=== PATIENT | female | born 1995 | race Caucasian/White ===

== ENCOUNTER 2017-07-15 13:10 | Emergency (ER) | payer BC ==
[~2017-07-15] VITALS: Ht 160 cm; Wt 47.4 kg
[2017-07-15 13:13] VITALS: TEMP 36.6; Ht 160 cm; Wt 47.4 kg
[2017-07-15] MEDS ORDERED: ONDANSETRON INJ 2 MG/ML 2 ML VIAL IV STA (13:21)
[2017-07-15] MEDS ORDERED: SODIUM CHLORIDE 0.9% 500ML 500 ML IV STA (13:21)
--- NOTE | 2017-07-15 13:33 | EMERGENCY ROOM VISIT NOTE ---
History Report prepared by Caron: Jessica Ngo Under the Supervision of: Dr. Emeka Celis M.D. First contact with patient: 13:19 Chief Complaint: ABDOMINAL PAIN Stated Complaint: ABDOMINAL CRAMPS,VOMITING,SWEATING,NUMB HANDS Nursing Triage Summary: Pt reports " i have cramps they started like this morning and they are like so bad." pt reports nausea and vomitting. pt reports "i feel really dizzy too." History of Present Illness The patient is a 21 year old white female with a past medical history of dysmenorrhea who presents to the ED with a cc of worsening abdominal pain and cramping beginning this morning. Positive nausea, chills, and vomiting . Negative urinary symptoms, back pain, or recent sexual intercourse. 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 She reports she has vomited 5 times today. Her last normal bowel movement was this morning. Source of History: patient Onset: this morning Position: abdomen Quality: cramping Timing: worsening Associated Symptoms: + chills, + nausea, + vomiting, No back pain, No urinary symptoms Note: Negative recent sexual intercourse. Review of Systems See HPI for pertinent positives and negatives. A total of ten systems were reviewed and were otherwise negative. Past Medical & Surgical Medical Problems: (1) Dysmenorrhea Family History No pertinent family history Social History Smoking Status: Never Smoker Current/Historical Medications No Active Prescriptions or Reported Meds Allergies Coded Allergies: No Known Allergies (Unverified , 07/15/17) Physical Exam Vital Signs Date Time Temp Pulse Resp B/P (MAP) Pulse Ox O2 Delivery O2 Flow Rate FiO2 07/15/17 16:25 82 18 94/57 98 Room Air 07/15/17 14:27 79 16 109/70 100 Room Air 07/15/17 13:13 36.6 60 18 97/53 100 Room Air Physical Exam GENERAL: Awake, alert, well-appearing. Moderate distress. Rigors present. HENT: Normocephalic, atraumatic. EYES: Normal conjunctiva. Sclera non-icteric. NECK: Supple. No nuchal rigidity. FROM. RESPIRATORY: CTAB, no rhonchi, wheezing, crackles CARDIAC: RRR, no MRG ABDOMEN: Soft, NTND, BS+. Mild diffuse abdominal discomfort. No guarding, no rigidity. Negative obturators. Negative psoas. MSK: No CVA TTP, no LE edema NEURO: GCS 15, CN 2-12 intact, moves all 4s on command SKIN: No rash or jaundice noted. Notable red blemishes over the face. Medical Decision & Procedures Laboratory Results 07/15/17 13:45 Red Blood Count 4.66, Mean Corpuscular Volume 88.8, Mean Corpuscular Hemoglobin 30.9, Mean Corpuscular Hemoglobin Concent 34.8, Mean Platelet Volume 11.2, Neutrophils (%) (Auto) 77.7, Lymphocytes (%) (Auto) 16.9, Monocytes (%) (Auto) 4.6, Eosinophils (%) (Auto) 0.3, Basophils (%) (Auto) 0.4, Neutrophils # (Auto) 5.60, Lymphocytes # (Auto) 1.22, Monocytes # (Auto) 0.33, Eosinophils # (Auto) 0.02, Basophils # (Auto) 0.03 07/15/17 13:45 Test 07/15/17 13:45 07/15/17 15:06 White Blood Count 7.21 K/uL (4.8-10.8) Red Blood Count 4.66 M/uL (4.2-5.4) Hemoglobin 14.4 g/dL (12.0-16.0) Hematocrit 41.4 % (37-47) Mean Corpuscular Volume 88.8 fL (80-100) Mean Corpuscular Hemoglobin 30.9 pg (25-34) Mean Corpuscular Hemoglobin Concent 34.8 g/dl (32-36) Platelet Count 211 K/uL (130-400) Mean Platelet Volume 11.2 fL (7.4-10.4) Neutrophils (%) (Auto) 77.7 % Lymphocytes (%) (Auto) 16.9 % Monocytes (%) (Auto) 4.6 % Eosinophils (%) (Auto) 0.3 % Basophils (%) (Auto) 0.4 % Neutrophils # (Auto) 5.60 K/uL (1.4-6.5) Lymphocytes # (Auto) 1.22 K/uL (1.2-3.4) Monocytes # (Auto) 0.33 K/uL (0.11-0.59) Eosinophils # (Auto) 0.02 K/uL (0-0.5) Basophils # (Auto) 0.03 K/uL (0-0.2) RDW Standard Deviation 39.6 fL (36.4-46.3) RDW Coefficient of Variation 12.5 % (11.5-14.5) Immature Granulocyte % (Auto) 0.1 % Immature Granulocyte # (Auto) 0.01 K/uL (0.00-0.02) Anion Gap 8.0 mmol/L (3-11) Est Creatinine Clear Calc Drug Dose 86.1 ml/min Estimated GFR () 126.8 Estimated GFR (Non- 109.4 BUN/Creatinine Ratio 15.7 (10-20) Calcium Level 9.5 mg/dl (8.5-10.1) Phosphorus Level 2.7 mg/dl (2.5-4.9) Magnesium Level 1.9 mg/dl (1.8-2.4) Total Bilirubin 0.5 mg/dl (0.2-1) Direct Bilirubin 0.2 mg/dl (0-0.2) Aspartate Amino Transf (AST/SGOT) 24 U/L (15-37) Alanine Aminotransferase (ALT/SGPT) 20 U/L (12-78) Alkaline Phosphatase 76 U/L (45-117) Total Protein 8.0 gm/dl (6.4-8.2) Albumin 4.5 gm/dl (3.4-5.0) Lipase 84 U/L (73-393) Urine Color YELLOW Urine Appearance CLOUDY (CLEAR) Urine pH 7.5 (4.5-7.5) Urine Specific [place] 1.016 (1.000-1.030) Urine Protein NEG (NEG) Urine Glucose (UA) NEG (NEG) Urine Ketones 1+ (NEG) Urine Occult Blood 3+ (NEG) Urine Nitrite NEG (NEG) Urine Bilirubin NEG (NEG) Urine Urobilinogen NEG (NEG) Urine Leukocyte Esterase NEG (NEG) Urine WBC (Auto) 1-5 /hpf (0-5) Urine RBC (Auto) >30 /hpf (0-4) Urine Hyaline Casts (Auto) 10-30 /lpf (0-5) Urine Epithelial Cells (Auto) >30 /lpf (0-5) Urine Bacteria (Auto) NEG (NEG) Urine Renal Epithelial Cells 0-5 /lpf (0-5) Urine Test NEG (NEG) Laboratory results reviewed by me Medications Administered Medications (Trade) Dose Ordered Sig/Otbi Route Start Time Stop Time Status Last Admin Dose Admin Ondansetron HCl (Zofran Inj) 4 mg NOW STAT IV 07/15/17 13:21 07/15/17 13:25 DC 07/15/17 13:45 4 MG Sodium Chloride 500 ml @ 999 mls/hr Q31M STAT IV 07/15/17 13:21 07/15/17 13:51 DC 07/15/17 13:44 999 MLS/HR Ketorolac Tromethamine (Toradol Inj) 30 mg STK-MED ONCE .ROUTE 07/15/17 13:40 07/15/17 13:41 DC 07/15/17 13:45 30 MG ED Course 1223: The patient was evaluated in room B2. A complete history and physical exam was performed. 1617: I reevaluated the patient. Discussed results and discharge instructions: She verbalized understanding and agreement. The patient is ready for discharge. Medical Decision The patient is a 21 year old white female with a past medical history of dysmenorrhea who presents to the ED with a cc of worsening abdominal pain and cramping beginning this morning. Positive nausea, chills, and vomiting . Negative urinary symptoms, back pain, recent sexual intercourse. Nursing notes reviewed. Ancillary studies and prior records reviewed. Differential diagnosis: Etiologies such as appendicitis, diverticulitis, PUD, biliary pathology, UTI, pancreatitis, obstruction, mesenteric ischemia, aortic pathology, infections, inflammatory bowel disease, renal colic, as well as others were entertained. Patient was seen and evaluated the bedside. Patient had some worsening abdominal pain and cramping with some associated nausea. Patient also did have rigors and chills. Patient did have blood work completed along with urinalysis and urine patency test. Patient's blood work is fairly unremarkable. Patient was given some IV fluids and Zofran along with Toradol. Upon reassessment the patient was feeling improved. Patient's urinalysis is negative for blood or infection. Urine test negative. Patient was informed of these findings. Patient was told to continue take the meloxicam for the next 2 days and could take a Pepcid along with food to help minimize GI upset. Patient was also given some Zofran for home. Patient was given strict follow-up, discharge, and return precautions. All questions were answered. Patient was deemed suitable for outpatient follow-up at this time. Patient agreed with the plan of care and was safely discharged home. Medication Reconcilliation Current Medication List: was personally reviewed by me Blood Pressure Screening Patient's blood pressure: Normal blood pressure Blood pressure disposition: Did not require urgent referral Impression Primary Impression: Abdominal pain Additional Impression: Nausea & vomiting Scribe Attestation The scribe's documentation has been prepared under my direction and personally reviewed by me in its entirety. I confirm that the note above accurately reflects all work, treatment, procedures, and medical decision making performed by me. Departure Information Dispostion Home / Self-Care Prescriptions Ondansetron Hcl (ZOFRAN) 4 Mg Tab 4 MG PO Q8H Y for Nausea, #12 TAB Prov: Emeka Celis M.D. 07/15/17 Famotidine (PEPCID) 20 Mg Tab 20 MG PO BID for 7 Days, #14 TAB Prov: Emeka Celis M.D. 07/15/17 Referrals No Doctor, Assigned (PCP) Patient Instructions Abdominal Pain, ED Nausea Vomiting, [facility] Additional Instructions Please return to the emergency department if you have worsening or recurrent symptoms not amenable to at-home treatment. Please call for a follow-up appointment with her primary care physician. Please take your medications as prescribed. If you have other concerns and/or complaints please feel free to also call your primary care physician's office or return the ED for further evaluation, management, and treatment. You may take your naproxen as needed for pain/fever as prescribed with food unless told by your physician not to take NSAIDs. You may take tylenol 1000 mg every 6 hours as needed for pain/fever unless told by your physician to not take it or have liver problems. You may take naproxen and tylenol separately or at the same time. Take your medications as prescribed. Avoid alcohol and continue to hydrate liberally with clear liquids. Consider a bland diet and advance as tolerated. You have been examined and treated today on an emergency basis only. This is not a substitute for, or an effort to provide, complete comprehensive medical care. It is impossible to recognize and treat all injuries or illnesses in a single emergency department visit. It is therefore important that you follow up closely with [facility], your PCP, and/or your specialist(s). Call as soon as possible for an appointment. Thank you for your time and consideration. I look forward to speaking with you again soon. Please don't hesitate to call us if you have any questions. Problem Qualifiers Primary Impression: Abdominal pain Abdominal location: generalized Qualified Codes: R10.84 - Generalized abdominal pain
[2017-07-15] MEDS ORDERED: KETOROLAC TROMETHAMINE 30 MG/ML VIAL ONE (13:40)
[2017-07-15 13:54] LABS: BASO % 0.4 %; BASO ABS # 0.03 K/uL (0-0.2); EOS % 0.3 %; EOS ABS # 0.02 K/uL (0-0.5); HEMATOCRIT 41.4 % (37-47); HEMOGLOBIN 14.4 g/dL (12.0-16.0); IG# 0.01 K/uL (0.00-0.02); LYMPH % 16.9 %; LYMPH ABS # 1.22 K/uL (1.2-3.4); MEAN CELL VOLUME 88.8 fL (80-100); MEAN CORPUSCULAR HEMOGLOBIN 30.9 pg (25-34); MEAN CORPUSCULAR HGB CONC 34.8 g/dl (32-36); MEAN PLATELET VOLUME 11.2 fL (7.4-10.4); MONO % 4.6 %; MONO ABS # 0.33 K/uL (0.11-0.59); NEUT % 77.7 %; PLATELET COUNT 211 K/uL (130-400); RED CELL DISTRIBUTION WIDTH CV 12.5 % (11.5-14.5); RED CELL DISTRIBUTION WIDTH SD 39.6 fL (36.4-46.3); WHITE BLOOD COUNT 7.21 K/uL (4.8-10.8)
[2017-07-15 14:12] LABS: ALBUMIN 4.5 gm/dl (3.4-5.0); CALCIUM 9.5 mg/dl (8.5-10.1); CREATININE 0.78 mg/dl (0.60-1.20); POTASSIUM 3.8 mmol/L (3.5-5.1)
[2017-07-15 14:17] LABS: PHOSPHORUS 2.7 mg/dl (2.5-4.9)
[2017-07-15 16:25] VITALS: BP 94/57; PULSE 82; O2SAT 98
[2017-07-15] MEDS ORDERED: ONDA4TAB46 PO (16:36)
[2017-07-15] MEDS ORDERED: FAMO20TA9 PO (16:36)
[2017-07-15] MEDS ORDERED: ONDANSETRON HOME PACK 4MG OD TAB PO ONE (16:45)
== END 2017-07-15 16:55 | disposition home or self-care (01) ==
LOC: C.EDB 13:12
DX: R10.84 Generalized abdominal pain (principal); R11.2 Nausea with vomiting, unspecified